=== PATIENT | male | born 1965 | race Two or more races ===

== ENCOUNTER → 2016-09-29 | Outpatient (REF) | payer BC ==
[2016-09-29 19:55] LABS: MEAN CORPUSCULAR HEMOGLOBIN 31.5 pg (27.0-33.0); MEAN CORPUSCULAR HGB CONC 33.6 g/dl (32.0-36.5); MEAN CORPUSCULAR VOLUME 93.6 fl (80.0-96.0); RED CELL DISTRIBUTION WIDTH 12.1 % (11.5-14.5); WHITE BLOOD COUNT 5.1 K/mm3 (4.0-10.0)
[2016-09-29 20:08] LABS: ALBUMIN 3.6 GM/DL (3.2-5.2); ALBUMIN/GLOBULIN RATIO 1.29 (1.00-1.93); ALKALINE PHOSPHATASE 71 U/L (45-117); ALT/SGPT 31 U/L (12-78); ANION GAP 7 MEQ/L (8-16); AST/SGOT 22 U/L (15-37); BILIRUBIN,TOTAL 0.6 MG/DL (0.2-1.0); BLOOD UREA NITROGEN 20 MG/DL (7-18); CALCIUM LEVEL 8.5 MG/DL (8.5-10.1); CARBON DIOXIDE LEVEL 27 MEQ/L (21-32); CHLORIDE LEVEL 106 MEQ/L (98-107); CHOLESTEROL LEVEL 218 MG/DL (<200); CREATININE FOR GFR 1.16 MG/DL (0.70-1.30); GLOMERULAR FILTRATION RATE > 60.0 (>56); GLUCOSE, FASTING 115 MG/DL (70-105); POTASSIUM SERUM 4.3 MEQ/L (3.5-5.1); SODIUM LEVEL 140 MEQ/L (136-145); TOTAL PROTEIN 6.4 GM/DL (6.4-8.2); TRIGLYCERIDES LEVEL 182 MG/DL (<150)
[2016-09-30 09:26] LABS: HIV SCRN NEGATIVE (NEGATIVE)
[2016-09-30 09:27] LABS: CONTROL LINE INT CTR LINE PRESENT; HIV SCRN1 NEGATIVE (NEGATIVE)
== END ==
LOC: M SFHCADAM 15:56
PROVIDERS: ATTEND Family Medicine
DX: Z13.0 Encounter for screening for diseases of the blood and blood-forming organs and certain disorders involving the immune mechanism (principal); Z13.220 Encounter for screening for lipoid disorders; Z11.59 Encounter for screening for other viral diseases; Z11.4 Encounter for screening for human immunodeficiency virus [HIV]

== ENCOUNTER → 2016-11-07 | Outpatient (CLI) | payer BC ==
[~2016-11-07] VITALS: Ht 182.9 cm; Wt 104.3 kg
[~2016-11-07] MED LIST: LIDOCAINE 2% INJ 100 MG/5 ML SDV (FOR ANES.) As Ordered ONE; NS 1,000 ML IV SCH; PROPOFOL 200 MG/20 ML VIAL As Ordered ONE; no medications
--- NOTE | 2016-11-07 13:36 | ROOR ---
Patient Name: Manish Ramires Procedure Date: 11/07/2016 1:18 PM Date of : 1965 Age: 51 Room: [facility] Gender: Male Note Status: Finalized Procedure: Colonoscopy Indications: Screening for colorectal malignant neoplasm Providers: Jose M TURNER MD Referring MD: Franki Rubio MD Requesting Provider: Medicines: Monitored Anesthesia Care Complications: No immediate complications. Procedure: Pre-Anesthesia Assessment: - The heart rate, respiratory rate, oxygen saturations, blood pressure, adequacy of pulmonary ventilation, and response to care were monitored throughout the procedure. The Colonoscope was introduced through the anus and advanced to the cecum, identified by appendiceal orifice and ileocecal valve. The colonoscopy was performed without difficulty. The patient tolerated the procedure well. The quality of the bowel preparation was good. Findings: The perianal and digital rectal examinations were normal. A 4 mm polyp was found in the ileocecal valve. The polyp was flat. The polyp was removed with a cold snare. Resection and retrieval were complete. Internal hemorrhoids were found during retroflexion. The hemorrhoids were medium-sized. The exam was otherwise without abnormality on direct and retroflexion views. (EXAM: Complete, PREP:Adequate) Impression: - One 4 mm polyp at the ileocecal valve, removed with a cold snare. Resected and retrieved. - Internal hemorrhoids. - The Colon is otherwise normal on direct and retroflexion views. Recommendation: - Repeat colonoscopy in 5 years for surveillance. Jose M Turner MD Jose M TURNER MD 11/07/2016 1:35:57 PM This report has been signed electronically. Number of Addenda: 0 Note Initiated On: 11/07/2016 1:18 PM Estimated Blood Loss: Estimated blood loss: none.
[2016-11-07 13:50] VITALS: BP 111/78
== END | disposition home or self-care (01) ==
LOC: M OPP 11:35
PROVIDERS: ATTEND Internal Medicine Gastroenterology
DX: Z12.11 Encounter for screening for malignant neoplasm of colon (principal); D12.0 Benign neoplasm of cecum; K64.8 Other hemorrhoids; L40.9 Psoriasis, unspecified; R06.83 Snoring; Z87.891 Personal history of nicotine dependence

== ENCOUNTER → 2018-11-21 | Outpatient (REF) | payer BC ==
[~2018-11-21] MED LIST changes: -LIDOCAINE 2% INJ 100 MG/5 ML SDV (FOR ANES.) As Ordered ONE; -NS 1,000 ML IV SCH; -PROPOFOL 200 MG/20 ML VIAL As Ordered ONE
== END ==
LOC: M SFHCPLAZ 18:45
PROVIDERS: ATTEND Dermatology
DX: D23.4 Other benign neoplasm of skin of scalp and neck (principal); L82.1 Other seborrheic keratosis

== ENCOUNTER 2019-03-07 09:04 | Day surgery (SDC) | payer BC ==
[~2019-03-07] VITALS: Ht 182.9 cm; Wt 97.1 kg
[~2019-03-07 09:04] MED LIST changes: +MIDAZOLAM INJ 2 MG/2 ML VIAL (J2250) As Ordered ONE; +OFLOXACIN 0.3 % (OCUFLOX) OPTH SOL 5ML OD ONE; +PHENYLEPHRINE 2.5% OPHTH SOL 2ML OD ONE; +PROPARACAINE 0.5% OPHTH SOL 15ML OD ONE; +TROPICAMIDE 1% OPHTH SOLN 2ML OD ONE
[2019-03-07] MEDS ORDERED: LIDOCAINE 0.75%/EPINEPHRINE 0.025% IN BSS 1ML SYR INTRACAMERAL (OR ONLY) As Ordered ONE (09:40)
[2019-03-07] MEDS ORDERED: HEALON DUET PRO(HEALON 10MG/ML 0.55ML & HEALON ENDOCOAT 30MG/ML 0.85ML) As Ordered ONE (12:54)
[2019-03-07] MEDS ORDERED: CEFUROXIME 1MG/0.1ML INTRACAMERAL INJ As Ordered ONE (12:56)
[2019-03-07 13:50] VITALS: BP 131/68
--- NOTE | 2019-03-11 14:05 | RO ---
DATE OF PROCEDURE: 03/07/2019 PREOPERATIVE DIAGNOSIS: 1. Visually significant nuclear sclerotic cataract right eye. POSTOPERATIVE DIAGNOSIS: 1. Visually significant nuclear sclerotic cataract right eye. PROCEDURE: 1. Cataract extraction with use of phacoemulsification and placement of intraocular lens, AU00T0, 12.5 D, right eye. SURGEON: Geovany Gunter DO ROCK PICKER: None. ANESTHESIA: Local with monitored anesthesia care (MAC). COMPLICATIONS: None. POSTOPERATIVE CONDITION: Stable. INDICATIONS FOR SURGERY: 1. Blurred vision affecting patients activities of daily living. DESCRIPTION OF PROCEDURE: The patient was seen in the preoperative area and properly identified. The correct operative eye was identified and marked. The patient received topical anesthetic, antibiotics, and topical dilating drops. The patient was then transferred to the operating room. The correct side was re-identified, and a time-out was performed. The eye was prepped and draped in a sterile fashion. The eyelids were isolated with Tegaderm tape, and the lids were held open with an adjustable speculum. A 1.0 mm paracentesis incision was made. Intraocular preservative-free Shugarcaine was then injected into the anterior chamber. Viscoelastic was then injected into the anterior chamber through the paracentesis. Using a 2.4 mm sharp-tipped keratome, the anterior chamber was entered via a temporal clear cornea incision. A continuous curvilinear capsulorrhexis was created with Utrata forceps. Hydrodissection was performed with balanced salt solution (BSS) on a blunt cannula until the nucleus was able to rotate freely. The crystalline lens was phacoemulsified and aspirated. Irrigation/aspiration was used to remove the cortical material. Cohesive viscoelastic was placed into the capsular bag to deepen it. The implant was placed into the capsular bag and allowed to unfold. Placement was confirmed by visualizing the anterior capsulorrhexis. Irrigation/aspiration was used to remove the viscoelastic. The clear corneal incision was hydrated with BSS on a blunt cannula. The lens was well positioned. The incisions were then tested for leaks and found to be negative. The eye was then palpated for appropriate pressure and adjusted accordingly with BSS. The eyelid speculum was then carefully removed. A shield was placed over the eye. The patient tolerated the procedure well and was discharged to the recovery unit in a stable condition. KATE
== END 2019-03-07 13:55 | disposition home or self-care (01) ==
LOC: M SDC 09:04
PROVIDERS: ATTEND Ophthalmology
DX: H25.11 Age-related nuclear cataract, right eye (principal)
CPT/HCPCS: 66984; J2250

== ENCOUNTER → 2019-03-26 | Outpatient (CLI) | payer BC ==
[~2019-03-26] MED LIST changes: -MIDAZOLAM INJ 2 MG/2 ML VIAL (J2250) As Ordered ONE; -OFLOXACIN 0.3 % (OCUFLOX) OPTH SOL 5ML OD ONE; -PHENYLEPHRINE 2.5% OPHTH SOL 2ML OD ONE; -PROPARACAINE 0.5% OPHTH SOL 15ML OD ONE; -TROPICAMIDE 1% OPHTH SOLN 2ML OD ONE
--- NOTE | 2019-03-26 19:28 | REP ---
CHEST, TWO VIEWS: Two views of the chest are performed. There is no prior study for comparison. There is consolidative infiltrate in the right upper lobe. The left lung is clear. The heart is normal in size. There are mild degenerative changes of the spine. IMPRESSION: Consolidative infiltrate right upper lobe. Recommend followup until resolution. Underlying mass can not be totally be excluded. Electronically Signed by Ron Stephenson MD 03/27/2019 05:02 P
== END ==
LOC: M RAD 16:50
PROVIDERS: ATTEND Family Medicine
DX: R09.02 Hypoxemia (principal)

== ENCOUNTER → 2019-03-26 | Outpatient (REF) | payer BC | LOC: M SFHCPLAZ 10:19 | PROVIDERS: ATTEND Family Medicine | DX: R09.02 Hypoxemia (principal) ==

== ENCOUNTER → 2019-04-09 | Outpatient (CLI) | payer BC ==
[~2019-04-09] MED LIST changes: +ISOVUE-370 76% 100ML VIAL (Q9967) As Ordered ONE
--- NOTE | 2019-04-09 15:39 | REP ---
CT of the chest with IV contrast: Comparisons are plain film studies dated 03/26/2019 and 04/09/2019. There is consolidation and infiltrate in the apical and posterior segments of the right upper lobe extending into the superior segment of the right lower lobe posteromedially. Is a small extension into the anterior segment of the right upper lobe. On the coronal images the minor fissure is elevated suggesting there is atelectasis and partial collapse of the right upper lobe. No definite endobronchial obstruction is identified by CT. The left lung is unremarkable. There are borderline enlarged right hilar nodes measuring up to 8 mm short axis. There is no mediastinal or left hilar lymphadenopathy. There is no axillary lymphadenopathy. There are no pleural effusions. The thoracic aorta is unremarkable. Cardiac size normal. There is no pericardial effusion. The visualized upper abdominal contents are unremarkable. Impression: There is air space disease in the right upper lobe as described extending into the superior segment of the right lower lobe as described. In addition, on the coronal images of the minor fissure is elevated compatible with atelectasis and partial collapse of the right upper lobe. No endobronchial occlusion is identified by CT. Nevertheless, I would recommend pulmonary consultation. There is a borderline enlarged right hilar node. There are no pleural effusions. Electronically Signed by Ron Allen MD 04/09/2019 03:30 P
== END ==
LOC: M RAD 14:30
PROVIDERS: ATTEND Physician Assistant Medical
DX: R93.89 Abnormal findings on diagnostic imaging of other specified body structures (principal); R05 Cough
CPT/HCPCS: 71260; Q9967

== ENCOUNTER → 2019-04-09 | Outpatient (CLI) | payer BC ==
[~2019-04-09] MED LIST changes: -ISOVUE-370 76% 100ML VIAL (Q9967) As Ordered ONE
--- NOTE | 2019-04-09 10:43 | REP ---
PA and lateral chest three views including two PA and single lateral views: Comparison is the PA and lateral chest dated 03/26/2019. The right upper lobe infiltrate has increased in density and there is partial collapse of the right upper lobe as an interval change. These findings may represent an endobronchial lesion. Consider pulmonary Lovely consultation. Left lung is clear. Cardiac size is normal. The ricarda, mediastinum, skeletal structures are otherwise unremarkable. No pleural effusions. Impression: Worsening of the right upper lobe infiltrate. Partial collapse of the right upper lobe. The possibility of an endobronchial lesion is raised. Consider pulmonary mass in consultation. Electronically Signed by Ron Allen MD 04/09/2019 10:34 A
== END ==
LOC: M ADAMS 09:52
PROVIDERS: ATTEND Physician Assistant Medical
DX: J18.1 Lobar pneumonia, unspecified organism (principal)

== ENCOUNTER → 2019-05-13 | Outpatient (CLI) | payer BC ==
[~2019-05-13] MED LIST changes: +FLUMAZENIL 0.5 MG/5 ML VIAL As Ordered ONE; +LIDOCAINE 1% MDV 20ML VIAL As Ordered ONE; +MIDAZOLAM INJ 2 MG/2 ML VIAL (J2250) As Ordered ONE
--- NOTE | 2019-05-14 08:05 | REP ---
Clinical: Follow up abnormal findings. Technique: Axial noncontrast images from the thoracic inlet to the upper abdomen with coronal and sagittal re-formations. Comparison: 04/09/2019. Findings: There is moderate/large right pneumothorax with approximately 35% loss of volume and underlying areas of parenchymal fibroatelectatic change. The left hemithorax is well-aerated and clear. There is no significant mediastinal shift. Mediastinal structures including thoracic aorta, pulmonary vasculature and heart/pericardium appear normal. No obvious adenopathy. Musculoskeletal structures appear intact. Limited upper abdomen demonstrates normal bilateral adrenal glands. Impression: 1. Moderate right pneumothorax with approximately 35% loss of volume. No associated mediastinal shift. Electronically Signed by Davian Sahu MD 05/14/2019 07:57 A
== END ==
LOC: M RAD 17:32
PROVIDERS: ATTEND Internal Medicine Pulmonary Disease
DX: J93.83 Other pneumothorax (principal); R91.8 Other nonspecific abnormal finding of lung field

== ENCOUNTER 2019-05-14 08:39 | Inpatient (IN) | payer BC ==
[~2019-05-14] VITALS: Ht 182.9 cm; Wt 93.0 kg
[2019-05-14] VITALS (10 sets, daily range): BP systolic 105–127; BP diastolic 65–83
[~2019-05-14 08:39] MED LIST changes: -FLUMAZENIL 0.5 MG/5 ML VIAL As Ordered ONE; -LIDOCAINE 1% MDV 20ML VIAL As Ordered ONE; -MIDAZOLAM INJ 2 MG/2 ML VIAL (J2250) As Ordered ONE
--- NOTE | 2019-05-14 09:40 | REP ---
Clinical: Pneumothorax. Technique: PA and lateral. Comparison: 04/09/2019. Findings: Current examination demonstrates a moderate right pneumothorax with approximately 35% loss of volume. No significant mediastinal shift is appreciated. The cardiac silhouette is normal. The skeletal structures are intact. Impression: Moderate right pneumothorax. Electronically Signed by Davian Sahu MD 05/14/2019 09:32 A
[2019-05-14] MEDS ORDERED: LEVALBUTEROL 1.25 MG/0.5 ML CONCENTRATE NEB NEB PRN (09:45)
[2019-05-14] MEDS ORDERED: PERCOCET 5MG/325MG TAB PO PRN ×2 (09:45)
[2019-05-14] MEDS ORDERED: ONDANSETRON 4MG/2ML VIAL (J2405) IV PRN (09:45)
[2019-05-14] MEDS ORDERED: NORCO, ANEXSIA 5/325MG TABLET (HYDROcodone/ACETAMINOPHEN) PO PRN (09:45)
[2019-05-14] MEDS ORDERED: ACETAMINOPHEN TAB 650MG DOSE (2X325MG) PO PRN (09:45)
[2019-05-14] MEDS ORDERED: BISACODYL 10 MG SUPP PR PRN (09:45)
[2019-05-14] MEDS ORDERED: KCL 20MEQ IN D5/NS 1000ML 1,000 ML IV SCH (10:00)
--- NOTE | 2019-05-14 11:59 | RO ---
DATE OF PROCEDURE: 05/14/2019 PREPROCEDURE DIAGNOSIS: Right pneumothorax. POSTPROCEDURE DIAGNOSIS: Right pneumothorax. PROCEDURE: Insertion of right anterior superior chest tube. SURGEON: Casimiro Padilla MD [employer]: ANESTHESIA: PROCEDURE: Under satisfactory moderate sedate achieved with 4 mg of Versed, the patient was prepped and draped in the usual sterile fashion. Incision was made over the second rib and a tunnel was created into the first intercostal space. A #20 chest tube was placed without difficulty and connected to the Pleur-evac and secured to the chest wall with a #2 Tevdek suture. The patient tolerated the procedure well. Chest x-ray is pending.
--- NOTE | 2019-05-14 11:59 | REP ---
Clinical: Status post chest tube. Comparison: 05/14/2019. Findings: Chest tube overlies the periphery of the right upper lung zone and the previously noted pneumothorax has essentially resolved. Area of fibro atelectatic change involving the right upper lobe is currently appreciated along with elevation to the right hemidiaphragm. The left hemithorax is well-aerated and clear. Mediastinum and cardiac silhouette appear normal. The skeletal structures are intact. Impression: Status post right chest tube placement. No obvious residual pneumothorax appreciated. Pleuroparenchymal changes involving the right upper lung zone and elevation to the right hemidiaphragm. Electronically Signed by Davian Sahu MD 05/14/2019 11:50 A
[2019-05-14] MEDS: MOM 30ML SUSPENSION UDC PO SCH (12:16)
[2019-05-14] MEDS: DOCUSATE SODIUM 100 MG CAP PO SCH ×2 (12:17→20:07)
[2019-05-14] MEDS: PANTOPRAZOLE 40MG TAB (PROTONIX) PO SCH (12:19)
[2019-05-14 12:41] LABS: BASO % 0.6 % (0.0-1.0); EOS # 0.4 10^3/uL (0.0-0.5); EOS % 8.1 % (0.0-3.0); HEMATOCRIT 40.4 % (42.0-52.0); HEMOGLOBIN 13.4 g/dl (13.5-17.5); LYMPH # 1.2 10^3/uL (1.5-5.0); LYMPH % 22.4 % (24.0-44.0); MEAN CORPUSCULAR HEMOGLOBIN 31.8 pg (27.0-33.0); MEAN CORPUSCULAR HGB CONC 33.2 g/dl (32.0-36.5); MEAN CORPUSCULAR VOLUME 95.7 fl (80.0-96.0); MONO # 0.5 10^3/uL (0.0-0.8); MONO % 9.1 % (0.0-5.0); NEUTROPHILS # 3.1 10^3/uL (1.5-8.5); NEUTROPHILS % 59.4 % (36.0-66.0); PLATELET COUNT, AUTOMATED 244 10^3/uL (150-450); RED BLOOD COUNT 4.22 10^6/uL (4.30-6.10); WHITE BLOOD COUNT 5.2 10^3/uL (4.0-10.0)
[2019-05-14] MEDS ORDERED: MIDAZOLAM INJ 2 MG/2 ML VIAL (J2250) IV ONE ×2 (12:45)
[2019-05-14] MEDS ORDERED: LIDOCAINE 1% MDV 20ML VIAL SC ONE (12:45)
--- NOTE | 2019-05-14 12:54 | HPE ---
DATE OF ADMISSION: 05/14/2019 Patient is seen at the request of Dr. Wallace for a pneumothorax. HISTORY OF PRESENT ILLNESS: Patient is a 54-year-old white male who about a month ago started to develop fever and non-rigor chills with extreme fatigue. He had a cough but without sputum production and without hemoptysis. Accompanying fever and chills was malaise although he continued to go to work. He also had a vague sensation of chest discomfort when he took in deep breaths and when he laid on that side. He had no dysphagia, but lost all his appetite and states that he has lost 20 pounds of weight in the last two months. He does not complain of shortness of breath nor does he complain of orthopnea or paroxysmal nocturnal dyspnea (PND). There has been no dysphagia. His x-rays showed a right upper lobe infiltrate. Chest x-rays were done in early March. Dr. Wallace saw him in followup after being treated with Levaquin upon referral from primary care. A chest CT done on 04/09 confirmed a severe right upper lobe infiltrate and also a right lower lobe infiltrate posteriorly. He had some mediastinal lymphadenopathy but nothing that looked pathologic. In followup yesterday, a CT was undertaken which showed clearing of his pneumonia, but a very large pneumothorax. Due to delay in communication the pneumothorax the finding was not conveyed to Dr. Wallace who saw it today and asked me to see him for relief of the pneumothorax. If the patient had not had the chest CT yesterday, he would not have known that he had a pneumothorax. There is no chest pain, no cough, no fevers, chills or sweats. There is no shortness of breath. He is virtually asymptomatic. PAST MEDICAL HISTORY: None. PAST SURGERIES: He had a cataract done in February on the right eye. MEDICATIONS AT HOME: Include: - prednisone taper which he is now off - He also take Mucinex occasionally. ALLERGIES: None. EXPOSURES: No exposures to tuberculosis. He has a chocolate lab at home and one cat. No birds. TRAVEL HISTORY: He has been to the [place]. He was born in [place] and has spent time in the [facility]. HABITS: Used to be a smoker of about 10 cigarettes per day for approximately 10 years and quit 10-12 years ago when the cost of cigarettes became to expensive at $10 a pack. He has two whiskeys a week and there are no illicit drugs. FAMILY HISTORY: Not relevant to the acute situation. REVIEW OF SYSTEMS: CONSTITUTIONAL: See HPI. Now without fevers, chills or sweats. EYES: Without diplopia. Without amaurosis fugax. Without prior jaundice. He had the above cataract on his right eye this February. NOSE: Without epistaxis. MOUTH: Has his own teeth. RESPIRATORY: See history of present illness. CARDIAC: Without prior myocardial infarction, intermittent claudication or tachycardia or palpitations. Without peripheral edema. GASTROINTESTINAL (GI): Without nausea, vomiting, diarrhea, or constipation. No melena or hematochezia, abdominal pain or hematemesis. GENITOURINARY (): Without hematuria, dysuria or history of renal stones. ENDOCRINE: Without diabetes. Without thyroid disease. HEMATOLOGIC: Without prolonged bleeding times. NEUROLOGIC: Without paresthesia, paralyses or seizures. PSYCHIATRIC: Without pathological, anxieties, depression or psychoses. PHYSICAL EXAMINATION: GENERAL: Well-developed, well-nourished, white male in no acute distress. VITAL SIGNS: Temperature is 97.0, heart rate is 84 and sinus rhythm, respiratory rate of 16 without the use of accessory muscles, blood pressure is 130/82 and his is 99% saturated on room air. EYES: Pupils equal, round and reactive to light. Extraocular motions intact. Sclera nonicteric. HEAD: Normocephalic. NOSE: Without deformity. MOUTH: Shows his mucous membranes to be pink and moist. Lips and commissures without lesions There is no thrush. Teeth are in good repair. NECK: Supple. There is no jugular venous distention (JVD). No subcutaneous emphysema. Trachea is midline. There is no lymphadenopathy or thyromegaly. He has 2+ carotid upstrokes. LUNGS: Show decreased breath sounds on the right side, but I hear to wheezes, rhonchi or rales. Left side shows normal vesicular sounds. Percussion notes are full to the diaphragm. CARDIAC EXAM: Without murmurs, clicks, gallops or rubs. I cannot feel his point of maximal impulse (PMI). S1 and S2 are normal. ABDOMEN: Soft, nontender. Bowel sounds are positive. There is no hepatomegaly. No CVA tenderness. EXTREMITIES: Show trace pretibial edema. No calf tenderness. No differential swelling of the upper extremities. SKIN: Warm, dry and perfused without cyanosis or mottling including that of the nail beds and the knees. NEURO: Shows II through XII intact, along with gross motor and gross sensation intact. Gait is also intact. PSYCHIATRIC: Shows him to be awake and alert, oriented times three with appropriate mood and affect and conversational. His chemistries and CBC are pending and I will review them as soon as they are back. His chest x-ray done today does not show any improvement in his pneumothorax and showing a right sided pneumothorax. His chest CT done yesterday and on 04/09 are discussed above. There is no subcutaneous emphysema on the chest x-ray. IMPRESSION: 1. Asymptomatic 25% pneumothorax. 2. Prior pneumonia, unknown organism, treated with Levaquin. PLAN AND DISCUSSION: I will immediately place a chest tube. I do think that his CT scan shows the ravages of his prior pneumonia and I suspect that he had an element of a necrosis. He has been left with some pneumatoceles, which I suspect one has popped causing the pneumothorax. I am surprised that he is virtually asymptomatic and did not experience shortness of breath or chest pain when it happened.
[2019-05-14 12:55] LABS: BLOOD UREA NITROGEN 10 MG/DL (7-18); CALCIUM LEVEL 8.5 MG/DL (8.5-10.1); CARBON DIOXIDE LEVEL 26 MEQ/L (21-32); CHLORIDE LEVEL 111 MEQ/L (98-107); CREATININE FOR GFR 0.77 MG/DL (0.70-1.30); GLOMERULAR FILTRATION RATE > 60.0 (>56); GLUCOSE, FASTING 101 MG/DL (70-100); POTASSIUM SERUM 4.1 MEQ/L (3.5-5.1); SODIUM LEVEL 141 MEQ/L (136-145)
[2019-05-14] MEDS: KETOROLAC 30 MG/ML VIAL (J1885) IV SCH ×2 (13:38→18:26)
[2019-05-14] MEDS: LEVALBUTEROL 1.25 MG/0.5 ML CONCENTRATE NEB NEB SCH ×2 (14:53→19:43)
[2019-05-14] MEDS ORDERED: SLF 3 ML SYR IV PRN (17:45)
[2019-05-14] MEDS: HEPARIN SOD (PORCINE) 5000 UNITS/ML VIAL SC SCH (20:07)
[2019-05-14] MEDS: SLF 3 ML SYR IV SCH (21:05)
[2019-05-15] MEDS: KETOROLAC 30 MG/ML VIAL (J1885) IV SCH ×4 (00:11→18:37)
[2019-05-15] MEDS: LEVALBUTEROL 1.25 MG/0.5 ML CONCENTRATE NEB NEB SCH ×4 (01:57→19:54)
[2019-05-15 04:00] VITALS: BP 118/63
[2019-05-15] MEDS: SLF 3 ML SYR IV SCH ×3 (05:52→21:01)
[2019-05-15 05:57] LABS: BASO % 0.6 % (0.0-1.0); EOS # 0.4 10^3/uL (0.0-0.5); EOS % 7.9 % (0.0-3.0); HEMATOCRIT 38.9 % (42.0-52.0); HEMOGLOBIN 12.6 g/dl (13.5-17.5); LYMPH # 1.4 10^3/uL (1.5-5.0); LYMPH % 26.7 % (24.0-44.0); MEAN CORPUSCULAR HEMOGLOBIN 31.2 pg (27.0-33.0); MEAN CORPUSCULAR HGB CONC 32.4 g/dl (32.0-36.5); MEAN CORPUSCULAR VOLUME 96.3 fl (80.0-96.0); MONO # 0.7 10^3/uL (0.0-0.8); MONO % 12.9 % (0.0-5.0); NEUTROPHILS # 2.7 10^3/uL (1.5-8.5); NEUTROPHILS % 51.7 % (36.0-66.0); PLATELET COUNT, AUTOMATED 236 10^3/uL (150-450); RED BLOOD COUNT 4.04 10^6/uL (4.30-6.10); WHITE BLOOD COUNT 5.3 10^3/uL (4.0-10.0)
[2019-05-15 06:28] LABS: BLOOD UREA NITROGEN 12 MG/DL (7-18); CALCIUM LEVEL 8.4 MG/DL (8.5-10.1); CARBON DIOXIDE LEVEL 28 MEQ/L (21-32); CHLORIDE LEVEL 112 MEQ/L (98-107); CREATININE FOR GFR 0.96 MG/DL (0.70-1.30); GLOMERULAR FILTRATION RATE > 60.0 (>56); GLUCOSE, FASTING 111 MG/DL (70-100); POTASSIUM SERUM 4.4 MEQ/L (3.5-5.1); SODIUM LEVEL 141 MEQ/L (136-145)
[2019-05-15 08:00] VITALS: BP 131/65
--- NOTE | 2019-05-15 08:19 | REP ---
Clinical: Follow up pneumothorax. Technique: PA and lateral. Comparison: 05/14/2019. Findings: Chest tube overlying the right upper lung zone is again noted and the current examination demonstrates a small residual apical pneumothorax. Right upper lobe pleuroparenchymal scarring again identified and stable. No new acute process. Mediastinum and cardiac silhouette normal. Left hemithorax is clear. Skeletal structures are intact. Impression: 1. Small residual right apical pneumothorax. 2. No new acute process. Electronically Signed by Davian Sahu MD 05/15/2019 08:10 A
[2019-05-15] MEDS: MOM 30ML SUSPENSION UDC PO SCH (08:27)
[2019-05-15] MEDS: DOCUSATE SODIUM 100 MG CAP PO SCH ×2 (08:27→20:11)
[2019-05-15] MEDS: PANTOPRAZOLE 40MG TAB (PROTONIX) PO SCH (08:27)
[2019-05-15] MEDS: HEPARIN SOD (PORCINE) 5000 UNITS/ML VIAL SC SCH ×2 (08:27→20:11)
--- NOTE | 2019-05-15 11:59 | IPN ---
DATE: 05/15/2019 This is the first hospital day for Mr. Ramires after his pneumothorax and chest tube placement. He is doing well and his pain control is well managed. He is not short of breath. There is no coughing. His vital signs show a T-max of 97.5 with a heart rate that ranges between 61 and 88 in a sinus rhythm, a respiratory rate that is constant at 16, who is 97% to 99% saturated on room air and whose blood pressure is ranging between 118/63 to 131/65. His intake and output the past 24 hours has been recorded as 1155 in and 770 out for a positivity of 385 mL. He has put 120 mL out the chest tube and there is no air leak. He weighs 89.7 kg today compared to 92.4 kg yesterday. On physical examination, his lungs show equal breath sounds on either side. I hear normal vesicular sounds without wheezes, rhonchi or rales. Percussion note is full to the diaphragm. There is no subcutaneous emphysema over his chest. Cardiac Exam: Without murmurs, clicks, gallops, or rubs. I cannot feel his PMI. S1, S2 are normal. Abdomen: Soft. Nontender. Bowel sounds are positive. There is no hepatomegaly. There is no costovertebral angle (CVA) tenderness. He has passed flatus, but has not had a bowel movement. Extremities: Show no pretibial edema. No calf tenderness. No differential swelling of the upper extremities. Skin: Warm, dry and perfused. Without cyanosis or mottling, including that of the nail beds and knees. Neck: Supple. There is no jugular venous distention. No subcutaneous emphysema. Trachea is midline. Mouth: Shows his mucous membranes to be pink and moist. Lips and commissures are without lesions. There is no thrush. Eyes: Show his pupils to be equal and reactive. Extraocular movements intact. Sclerae nonicteric. Neurologic: Shows II-XII intact along with gross motor and gross sensation intact. Gait is not tested. Psychiatric shows him to be awake, alert, and oriented times three with appropriate mood and affect and conversational. His white count today is 5.3 with hemoglobin and hematocrit of 12.6 and 38.9 respectively and a platelet count of 236. Differential shows 51% neutrophils, 26% lymphocytes, 12% monocytes. There are no immature forms and no toxic granulations. Electrolytes are normal with a BUN and creatinine of 12 and 0.96. He remains on Toradol. Glucose is 111 and calcium 8.4. His chest x-ray today shows the lung expanded to the chest wall. There is a small apical air space in the upper hemithorax. There looks to be a minor infiltration pattern, probably secondary to underlying compression which is resolving. Costophrenic angles are sharp. There are no posterior infiltrates on the lateral film. IMPRESSION: 1. Spontaneous pneumothorax right side. 2. Status post probable necrotizing pneumonia, unknown organism, treated with Levaquin. 3. Numerous lung pneumatoceles secondary to probable inflammatory necrosis from his prior pneumonia. PLAN AND DISCUSSION: I will take his chest tubes off suction today. If all goes well and the chest x-ray is unchanged, I will discontinue his chest tube tomorrow and plan for discharge the next day.
[2019-05-15 12:00] VITALS: BP 142/66
[2019-05-15 16:00] VITALS: BP 130/61
[2019-05-15 20:00] VITALS: BP 130/68
[2019-05-16] VITALS: BP 109/59
[2019-05-16] MEDS: KETOROLAC 30 MG/ML VIAL (J1885) IV SCH ×4 (00:32→18:12)
[2019-05-16] MEDS: LEVALBUTEROL 1.25 MG/0.5 ML CONCENTRATE NEB NEB SCH ×4 (01:25→20:25)
[2019-05-16 04:00] VITALS: BP 113/62
[2019-05-16] MEDS: SLF 3 ML SYR IV SCH ×3 (05:45→21:17)
[2019-05-16 06:10] LABS: BASO % 0.4 % (0.0-1.0); EOS # 0.4 10^3/uL (0.0-0.5); EOS % 8.4 % (0.0-3.0); HEMATOCRIT 38.6 % (42.0-52.0); HEMOGLOBIN 12.2 g/dl (13.5-17.5); LYMPH # 1.2 10^3/uL (1.5-5.0); MEAN CORPUSCULAR HEMOGLOBIN 31.2 pg (27.0-33.0); MEAN CORPUSCULAR HGB CONC 31.6 g/dl (32.0-36.5); MEAN CORPUSCULAR VOLUME 98.7 fl (80.0-96.0); MONO # 0.6 10^3/uL (0.0-0.8); MONO % 11.6 % (0.0-5.0); NEUTROPHILS # 2.7 10^3/uL (1.5-8.5); NEUTROPHILS % 55.2 % (36.0-66.0); PLATELET COUNT, AUTOMATED 211 10^3/uL (150-450); RED BLOOD COUNT 3.91 10^6/uL (4.30-6.10); WHITE BLOOD COUNT 4.9 10^3/uL (4.0-10.0)
[2019-05-16 06:26] LABS: BLOOD UREA NITROGEN 14 MG/DL (7-18); CALCIUM LEVEL 8.3 MG/DL (8.5-10.1); CARBON DIOXIDE LEVEL 26 MEQ/L (21-32); CHLORIDE LEVEL 112 MEQ/L (98-107); CREATININE FOR GFR 0.89 MG/DL (0.70-1.30); GLOMERULAR FILTRATION RATE > 60.0 (>56); GLUCOSE, FASTING 117 MG/DL (70-100); POTASSIUM SERUM 4.1 MEQ/L (3.5-5.1); SODIUM LEVEL 142 MEQ/L (136-145)
[2019-05-16 08:00] VITALS: BP 127/61
--- NOTE | 2019-05-16 08:45 | REP ---
Clinical: Pneumothorax. Technique: PA and lateral. Comparison: 05/15/2019. Findings: Small residual right apical pneumothorax essentially unchanged. Right chest tube in stable position. No new acute process identified. Left hemithorax is well-aerated and clear. Mediastinum and cardiac silhouette are normal. Skeletal structures are intact. Impression: Small residual right apical pneumothorax unchanged. No new acute process. Electronically Signed by Davian Sahu MD 05/16/2019 08:36 A
[2019-05-16] MEDS: MOM 30ML SUSPENSION UDC PO SCH (09:00)
[2019-05-16] MEDS: HEPARIN SOD (PORCINE) 5000 UNITS/ML VIAL SC SCH ×2 (09:00→21:00)
[2019-05-16] MEDS: PANTOPRAZOLE 40MG TAB (PROTONIX) PO SCH (09:18)
[2019-05-16] MEDS: DOCUSATE SODIUM 100 MG CAP PO SCH ×2 (09:18→21:13)
[2019-05-16 11:50] VITALS: BP 121/69
--- NOTE | 2019-05-16 15:46 | IPN ---
DATE: 05/16/2019 This is now the second full hospital day for Mr. Ramires. I was intent on taking his chest tube out today. However, his chest x-ray shows a small rim of pneumothorax. His pain is being well controlled. His vital signs show a maximum temperature (Tmax) of 98.0 with a heart rate that ranges between 70-83 in a sinus rhythm, respiratory rate of 14-18 without the use of accessory muscle, who is 94-96% saturated on room air and whose blood pressure is ranging between 127/61-109/79. His intake and output for the past 24 hours has been recorded as 650 in and 758 out for near equality. He has put 58 mL out the chest tube and there is no air leak. Weight today is 92.9 kg compared to 89.7 kg yesterday. On physical examination, there are equal breath sounds on either side with normal vesicular sounds without wheezes, rhonchi or rales. Percussion note is full to the diaphragm. Cardiac exam is without murmurs, clicks, gallops, or rubs. I cannot feel his point of maximum impulse (PMI). S1 and S2 are normal. Abdomen is soft, nontender. Bowel sounds are positive. There is no hepatomegaly. No costovertebral angle (CVA) tenderness. Extremities show no pretibial edema. No calf tenderness. No differential swelling of the upper extremities. Skin is warm, dry and perfused without cyanosis or mottling, including that of the nail beds and knees. Neck is supple. There is no jugular venous distention and no subcutaneous emphysema. Trachea is midline. Mouth shows his mucous membranes to be pink and moist. Lips and commissures without lesions. There is no thrush. Eyes show his pupils to be equal and reactive. Extraocular movements are intact. Sclerae nonicteric. Neuro shows II-XII intact along with gross motor and gross sensation intact and gait is not tested. Psychiatric shows him to be awake, alert, and oriented times three with appropriate mood and affect and conversational. His white count today is 4.9 with hemoglobin and hematocrit of 12.2 and 38.6, unchanged from yesterday, with a platelet count of 211 and stable. Differential shows 55% neutrophils, 24% lymphocytes, 11% monocytes. There are no immature forms and no toxic granulations. Electrolytes are normal with a BUN and creatinine of 14 and 0.89, glucose of 117 and a calcium of 8.3. His chest x-ray is noted above. It shows a very small rim of an air space or pneumothorax. There are no infiltrates. angles are sharp. There are no posterior infiltrates on the lateral film. IMPRESSION: 1. Hospital day #2 status post spontaneous pneumothorax right side. 2. Status post probable necrotizing pneumonia, unknown organism, treated with Levaquin in the past. 3. Numerous lung pneumatoceles secondary to probable inflammatory necrosis from prior pneumonia. PLAN AND DISCUSSION: As noted above, I was planning to take the chest tube out. However, he does have a small rim of pneumothorax. I am going to keep the chest tube off suction and monitor his chest x-ray. If his chest x-ray improves or remains unchanged, I will then remove the chest tube tomorrow and plan to discharge the next day.
[2019-05-16 16:00] VITALS: BP 120/62
[2019-05-16 20:00] VITALS: BP 122/62
[2019-05-17] VITALS: BP 108/58
[2019-05-17] MEDS: KETOROLAC 30 MG/ML VIAL (J1885) IV SCH ×2 (00:50→05:55)
[2019-05-17] MEDS: LEVALBUTEROL 1.25 MG/0.5 ML CONCENTRATE NEB NEB SCH ×4 (01:47→19:27)
[2019-05-17 04:00] VITALS: BP 104/60
[2019-05-17 05:53] LABS: BASO % 0.2 % (0.0-1.0); EOS # 0.6 10^3/uL (0.0-0.5); EOS % 10.2 % (0.0-3.0); HEMATOCRIT 39.1 % (42.0-52.0); HEMOGLOBIN 12.3 g/dl (13.5-17.5); LYMPH # 1.2 10^3/uL (1.5-5.0); LYMPH % 21.2 % (24.0-44.0); MEAN CORPUSCULAR HEMOGLOBIN 31.1 pg (27.0-33.0); MEAN CORPUSCULAR HGB CONC 31.5 g/dl (32.0-36.5); MONO # 0.6 10^3/uL (0.0-0.8); MONO % 10.2 % (0.0-5.0); NEUTROPHILS # 3.3 10^3/uL (1.5-8.5); NEUTROPHILS % 57.7 % (36.0-66.0); PLATELET COUNT, AUTOMATED 211 10^3/uL (150-450); RED BLOOD COUNT 3.95 10^6/uL (4.30-6.10); WHITE BLOOD COUNT 5.7 10^3/uL (4.0-10.0)
[2019-05-17] MEDS: SLF 3 ML SYR IV SCH ×3 (05:55→21:06)
[2019-05-17 06:22] LABS: BLOOD UREA NITROGEN 15 MG/DL (7-18); CALCIUM LEVEL 8.5 MG/DL (8.5-10.1); CARBON DIOXIDE LEVEL 24 MEQ/L (21-32); CHLORIDE LEVEL 113 MEQ/L (98-107); CREATININE FOR GFR 0.82 MG/DL (0.70-1.30); GLOMERULAR FILTRATION RATE > 60.0 (>56); GLUCOSE, FASTING 115 MG/DL (70-100); POTASSIUM SERUM 4.4 MEQ/L (3.5-5.1); SODIUM LEVEL 142 MEQ/L (136-145)
[2019-05-17 08:00] VITALS: BP 130/63
--- NOTE | 2019-05-17 08:41 | REP ---
Two-view chest: 05/17/2019. Indication: Pneumothorax. Comparison: The previous day. Findings: Small residual right apical pneumothorax is unchanged. Right-sided chest tube is similarly positioned. No air space consolidation, significant pleural effusion or cardiomegaly are present. Impression: Stable small right apical pneumothorax. Electronically Signed by Jeremiah Escamilla DO 05/17/2019 08:33 A
[2019-05-17] MEDS: HEPARIN SOD (PORCINE) 5000 UNITS/ML VIAL SC SCH ×2 (09:00→21:00)
[2019-05-17] MEDS: DOCUSATE SODIUM 100 MG CAP PO SCH ×2 (09:13→21:00)
[2019-05-17] MEDS: PANTOPRAZOLE 40MG TAB (PROTONIX) PO SCH (09:13)
[2019-05-17] MEDS: MOM 30ML SUSPENSION UDC PO SCH (09:13)
--- NOTE | 2019-05-17 11:52 | IPN ---
DATE: 05/17/2019 Mr. Ramires is doing well today. He is not complaining of shortness of breath. There is no cough. There is no air leak from his chest tube. His vital signs show a maximum temperature (Tmax) of 99.3 with a heart rate that ranges between 70 and 86 in a sinus rhythm. Respiratory rate of 15-18 without the use of accessory muscle, who is 95% saturated on room air and whose blood pressure is ranging between 108/58 to 130/63. His intake and output for the past 24 hours has been recorded as 2820 in and 312 out for a positivity of 2500. I suspect the intake and output is spurious. His chest tube has put out 12 mL and there is no air leak. Weight today is 91.6 kg compared to 92.2 kg yesterday. On physical examination, lung filed normal vesicular sounds with equal breath sounds on either side. Percussion note is full to the diaphragm. Cardiac exam is without murmurs, clicks, gallops, or rubs. I cannot feel his point of maximum impulse (PMI). S1 and S2 are normal. Abdomen is soft, nontender. Bowel sounds are positive. There is no hepatomegaly. No costovertebral angle (CVA) tenderness. Extremities show no pretibial edema. No calf tenderness. No differential swelling of the upper extremities. Skin is warm, dry and perfused without cyanosis or mottling, including that of the nail beds and knees. Neck is supple. There is no jugular venous distention and no subcutaneous emphysema. Trachea is midline. Mouth shows his mucous membranes to be pink and moist. Lips and commissures without lesions. There is no thrush. Eyes show his pupils to be equal and reactive. Extraocular movements are intact. Sclerae nonicteric. Neuro shows II-XII intact along with gross motor and gross sensation intact and gait is not tested. Psychiatric shows him to be awake, alert, and oriented times three with appropriate mood and affect and conversational. His white count today is 5.7 with hemoglobin and hematocrit of 12.3 and 39.1 and a platelet count of 211 and stable. Differential shows 57% neutrophils, 10% lymphocytes, 10% monocytes. There are no immature forms and no toxic granulations. Chemistries show normal electrolytes with a BUN and creatinine of 15 and 0.82. Glucose of 115 and a calcium of 8.5. His chest x-ray today still shows an apical air space but it is unchanged since yesterday. Costophrenic angles are sharp and there are no infiltrates. There is no subcutaneous emphysema. IMPRESSION: 1. Hospital day #3 status post spontaneous pneumothorax right side. 2. Status post probable necrotizing pneumonia, unknown organism, treated with Levaquin in the past. 3. Numerous lung pneumatoceles secondary to probable inflammatory necrosis from prior pneumonia. PLAN AND DISCUSSION: I will remove his chest tubes today. I will wait 24 hours and repeat his chest x-ray. If the lung shows no change I will discharge him tomorrow.
[2019-05-17 12:00] VITALS: BP 112/66
[2019-05-17 16:00] VITALS: BP 104/30
[2019-05-17 20:00] VITALS: BP 146/70
[2019-05-18] VITALS: BP 128/80
[2019-05-18] MEDS: LEVALBUTEROL 1.25 MG/0.5 ML CONCENTRATE NEB NEB SCH ×2 (00:21→07:28)
[2019-05-18 04:00] VITALS: BP 152/86
[2019-05-18 05:47] LABS: BASO % 0.4 % (0.0-1.0); EOS # 0.7 10^3/uL (0.0-0.5); EOS % 9.7 % (0.0-3.0); HEMATOCRIT 39.2 % (42.0-52.0); HEMOGLOBIN 12.5 g/dl (13.5-17.5); LYMPH # 1.1 10^3/uL (1.5-5.0); LYMPH % 16.6 % (24.0-44.0); MEAN CORPUSCULAR HEMOGLOBIN 31.4 pg (27.0-33.0); MEAN CORPUSCULAR HGB CONC 31.9 g/dl (32.0-36.5); MEAN CORPUSCULAR VOLUME 98.5 fl (80.0-96.0); MONO # 0.6 10^3/uL (0.0-0.8); MONO % 9.4 % (0.0-5.0); NEUTROPHILS # 4.3 10^3/uL (1.5-8.5); NEUTROPHILS % 63.6 % (36.0-66.0); PLATELET COUNT, AUTOMATED 209 10^3/uL (150-450); RED BLOOD COUNT 3.98 10^6/uL (4.30-6.10); WHITE BLOOD COUNT 6.8 10^3/uL (4.0-10.0)
[2019-05-18 06:09] LABS: BLOOD UREA NITROGEN 13 MG/DL (7-18); CALCIUM LEVEL 8.4 MG/DL (8.5-10.1); CARBON DIOXIDE LEVEL 27 MEQ/L (21-32); CHLORIDE LEVEL 109 MEQ/L (98-107); GLOMERULAR FILTRATION RATE > 60.0 (>56); GLUCOSE, FASTING 135 MG/DL (70-100); POTASSIUM SERUM 4.7 MEQ/L (3.5-5.1); SODIUM LEVEL 140 MEQ/L (136-145)
[2019-05-18] MEDS: SLF 3 ML SYR IV SCH (06:12)
[2019-05-18 08:00] VITALS: BP 114/68
[2019-05-18] MEDS: PANTOPRAZOLE 40MG TAB (PROTONIX) PO SCH (08:33)
--- NOTE | 2019-05-18 08:33 | REP ---
Clinical: Follow up pneumothorax. Technique: PA and lateral. Comparison: 05/17/2019. Findings: Right chest tube has been removed and no obvious residual pneumothorax is identified. Chronic appearing pleuroparenchymal changes to the right upper lung zone again noted and similar to prior examination. Remainder of lung goodman are well-aerated and essentially clear. No effusion. Mediastinum and cardiac silhouette are normal. Impression: 1. No obvious residual pneumothorax. 2. Stable pleuroparenchymal changes to the right upper lung zone. Electronically Signed by Davian Sahu MD 05/18/2019 08:24 A
[2019-05-18] MEDS: DOCUSATE SODIUM 100 MG CAP PO SCH (08:58)
[2019-05-18] MEDS: MOM 30ML SUSPENSION UDC PO SCH (08:58)
[2019-05-18] MEDS: HEPARIN SOD (PORCINE) 5000 UNITS/ML VIAL SC SCH (08:59)
--- NOTE | 2019-05-18 11:12 | DSES ---
DATE OF ADMISSION: 05/14/2019 DATE OF DISCHARGE: 05/18/2019 DISCHARGE DIAGNOSES: 1. Spontaneous pneumothorax, right side. 2. Status post necrotizing pneumonia with unknown organism treated with Levaquin the past. 3. Numerous lung pneumatocele secondary to probable inflammatory necrosis from prior pneumonias. 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 The patient was therefore admitted to the hospital where a chest tube was placed. The lung expanded to the chest wall except for a very small apical airspace. The chest tube was left in place for 3 days and taken off suction on the first day. On the second day, he still had a small apical airspace. On the third day, after taking the chest tube off suction, the airspace was still present but unchanged and therefore, the chest tube was removed. On discharge, his chest x-ray showed his lungs completed expanded to the chest wall. He is being discharged today on no medications except [id number] nonsteroidal anti-inflammatory drugs (NSAIDs). He has very little pain. He has been advised not to return to heavy duty work. I have asked him not lift anything more than 15 pounds and certainly not to go up ladders for the next few weeks. There is always a possibility of this recurring. His chest CT showed numerous pneumatoceles, which could very well have been the source of his spontaneous pneumothorax secondary to inflammatory necrosis during his pneumonia. His discharge white count is 6.8 with a hemoglobin and hematocrit of 12.4 and 39.2 and a platelet count of 209. Discharge electrolytes are normal with a BUN and creatinine of 13 and 0.9. Chest x-ray shows his lungs fully expanded to the chest wall with sharp costophrenic angles and no infiltrates. I will see him back in the office in 7-10 days in the post hospitalization followup with a chest x-ray. At that time, I will hand back his care to his finisher tailor apprentice.
== END 2019-05-18 10:59 | disposition home or self-care (01) | DRG 143 ==
LOC: M ED 08:39 → M ED INP 09:31 → M PCU 09:55
PROVIDERS: ADMIT Thoracic Surgery (Cardiothoracic Vascular Surgery); ATTEND Thoracic Surgery (Cardiothoracic Vascular Surgery)
PROC: 0W9930Z Drainage of Right Pleural Cavity with Drainage Device, Percutaneous Approach (ICD-10-PCS; principal; 2019-05-14)
DX: J93.83 Other pneumothorax (principal); J85.0 Gangrene and necrosis of lung; J98.4 Other disorders of lung

== ENCOUNTER → 2019-06-20 | Outpatient (CLI) | payer BC ==
--- NOTE | 2019-06-20 08:36 | REPPI ---
Clinical: Pneumothorax . Comparison: 05/27/2019 . Technique: PA and lateral. Findings: The mediastinum and cardiac silhouette are normal. The lung goodman are clear and without acute consolidation, effusion, or pneumothorax. The skeletal structures are intact and normal. Impression: 1. No acute cardiopulmonary process. Electronically Signed by aDvian Sahu MD 06/20/2019 08:28 A
== END ==
LOC: M PLALAB 08:13 → M PLAIMG 08:13
PROVIDERS: ATTEND Thoracic Surgery (Cardiothoracic Vascular Surgery)
DX: J93.9 Pneumothorax, unspecified (principal)

== ENCOUNTER → 2022-08-18 | Outpatient (CLI) | payer BC, OTHER, SELFPAY | LOC: M LABSMTC 09:00 | PROVIDERS: ATTEND Anesthesiology | DX: Z01.812 Encounter for preprocedural laboratory examination (principal); Z20.822 Contact with and (suspected) exposure to COVID-19 ==

== ENCOUNTER 2022-08-22 09:13 | Day surgery (SDC) | payer OTHER ==
[~2022-08-22] VITALS: Ht 180.3 cm; Wt 99.0 kg
[~2022-08-22 09:13] MED LIST changes: +NS 1,000 ML IV ONE
[2022-08-22] MEDS ORDERED: propofoL 200 MG/20 ML VIAL As Ordered ONE (10:10)
[2022-08-22] MEDS ORDERED: LIDOCAINE 2% 100MG/5ML SDV (FOR ANES.) As Ordered ONE (10:10)
[2022-08-22 10:50] VITALS: BP 127/75
== END 2022-08-22 11:08 | disposition home or self-care (01) ==
LOC: M OPP 09:13
PROVIDERS: ATTEND Internal Medicine Gastroenterology
DX: Z12.11 Encounter for screening for malignant neoplasm of colon (principal); Z86.010 Personal history of colon polyps; D12.2 Benign neoplasm of ascending colon; D12.3 Benign neoplasm of transverse colon; K63.5 Polyp of colon; Z87.09 Personal history of other diseases of the respiratory system

== ENCOUNTER → 2023-07-19 | Outpatient (REF) | payer OTHER ==
[~2023-07-19] MED LIST changes: -NS 1,000 ML IV ONE
== END ==
LOC: M LAB REF 22:18
PROVIDERS: ATTEND Physician Assistant
DX: R05.9 Cough, unspecified (principal)